=== PATIENT | female | born 1995 | race Caucasian/White ===

== ENCOUNTER → 2016-12-17 | Outpatient (CLI) | payer OTHER ==
[~2016-12-17] MED LIST: INSU1.2I SC; NVLGI SC; ONDA4TAB10 SL
[2016-12-17 12:04] LABS: HEMATOCRIT 44.2 % (37-47)
[2016-12-17 12:40] LABS: RATIO 13.8 mcg/mg (0-30.0)
[2016-12-17 13:06] LABS: ESTIMATED AVERAGE GLUCOSE 321 mg/dl; HA1C FLAG Normal (Normal)
[2016-12-17 13:23] LABS: ALT/SGPT 29 U/L (12-78); BLOOD UREA NITROGEN 14 mg/dl (7-18); BUN/CREATININE RATIO 20.9 (10-20); CALCIUM 10.1 mg/dl (8.5-10.1); CARBON DIOXIDE 29 mmol/L (21-32); CHLORIDE 103 mmol/L (98-107); CHOLESTEROL 326 mg/dl (0-200); CREATININE 0.67 mg/dl (0.60-1.20); GLUCOSE 87 mg/dl (70-99); POTASSIUM 3.6 mmol/L (3.5-5.1); SODIUM 140 mmol/L (136-145)
[2016-12-17 13:32] LABS: ALB/GLOB RATIO 0.9 (0.9-2); ALKALINE PHOSPHATASE 110 U/L (45-117); AST/SGOT 12 U/L (15-37); CHOLESTEROL/HDL RATIO 7.2; HDL CHOLESTEROL 45 mg/dl; LDL CHOLESTEROL CALCULATED 215 mg/dl; TRIGLYCERIDES 328 mg/dl (0-150); VERY LOW DENSITY LIPOPROT CALC 66 mg/dl
[2016-12-19 16:53] LABS: MICROSOMAL AB 39 IU/ML (<9)
== END | disposition home or self-care (01) ==
LOC: C.LAB1850 10:49
PROVIDERS: ATTEND Internal Medicine Endocrinology, Diabetes & Metabolism
DX: E03.9 Hypothyroidism, unspecified (principal); E10.9 Type 1 diabetes mellitus without complications